=== PATIENT | male | born 1965 | race Caucasian/White ===

== ENCOUNTER 2020-02-13 11:51 | Emergency (ER) | payer BC, SELFPAY ==
--- NOTE | 2020-02-13 12:00 | DI.RAD_ITS ---
EXAM: XR CERVICAL SP MALONEY TRAUMA 2-3V CLINICAL HISTORY: Fall, TECHNIQUE: 2D digital imaging was performed. COMPARISON: No exams were available for comparison FINDINGS: There is no evidence of fracture. The alignment is normal. There is no prevertebral soft tissue swe lling. There are disc degenerative changes of the facet joints and mild degenerative disc changes. IMPRESSION: No acute abnormality.
--- NOTE | 2020-02-13 12:00 | DI.RAD_ITS ---
EXAM: XR SHOULDER LT COMPLETE 2+V CLINICAL HISTORY: Fall yesterday, hx of surgery TECHNIQUE: 2D digital imaging was performed. COMPARISON: No exams were available for comparison FINDINGS: There is no evidence of fracture or dislocation. There is spurring at the tip of the acromion. A leija bchondral cyst is seen in the humeral head. There is mild spurring at the glenoid. IMPRESSION: Mild degenerative changes.
[2020-02-13 12:04] VITALS: BP 113/59; PULSE 58; RESP 18; TEMP 36.8; O2SAT 98
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
[2020-02-13] MEDS: Cyclobenzaprine 10 MG TAB PO (12:16)
--- NOTE | 2020-02-13 13:35 | DI.VRAD_ITS ---
PROCEDURE INFORMATION: Exam: XR Cervical Spine, 2 or 3 Views Exam date and time: 02/13/2020 1:07 PM Age: 54 years old Clinical indication: Other: Fall TECHNIQUE: Imaging protocol: XR of the cervical spine, 2 or 3 views. COMPARISON: No relevant prior studies available. FINDINGS: Vertebrae: All spinal elements are developmentally normal and intact. Normal alignment. Minimal disc space narrowing C4/5, C5/6 and C6/7. No degenerative spurs or stenosis Soft tissues: Normal. IMPRESSION: Minimal disc space narrowing, otherwise, normal. No fracture or malalignment. Dictated and Authenticated by: Alexandru Rowan MD. Ordering:OSKAR Osuna MD
--- NOTE | 2020-02-13 13:37 | DI.VRAD_ITS ---
PROCEDURE INFORMATION: Exam: XR Left Shoulder Exam date and time: 02/13/2020 1:11 PM Age: 54 years old Clinical indication: Other: Fell 9..20, HX of surgery TECHNIQUE: Imaging protocol: XR Left shoulder. Views: 2 or more views. COMPARISON: No relevant prior studies available. FINDINGS: Bones/joints: Normal mineralization and alignment. No fracture, degenerative spur or osseous erosion. Benign humeral head subcortical cyst measuring 1 cm. Soft tissues: Normal. IMPRESSION: Benign humeral head subcortical cyst, otherwise normal. Dictated and Authenticated by: Alexandru Rowan MD. Ordering:OSKAR Osuna MD
[2020-02-13] MEDS: Cyclobenzaprine 10 MG TAB, 3 TABS/BTL PO (14:05)
== END 2020-02-13 14:05 | disposition home or self-care (01) ==
PROVIDERS: Emergency Provider Registered Nurse Emergency
DX: S16.1XXA Strain of muscle, fascia and tendon at neck level, initial encounter (principal); S43.492A Other sprain of left shoulder joint, initial encounter; W01.198A Fall on same level from slipping, tripping and stumbling with subsequent striking against other object, initial encounter; Y92.838 Other recreation area as the place of occurrence of the external cause
CPT/HCPCS: 99284; 72040; 73030